=== PATIENT | male | born 1970 | race Caucasian/White ===

== ENCOUNTER 2025-03-12 06:19 | Day surgery (SDC) | payer OTHER, MEDICARE ==
[~2025-03-12] VITALS: Ht 180.3 cm; Wt 76.8 kg
[2025-03-12] MEDS ORDERED: AMPICILLIN SODIUM 2 GM/NS 100 ML IV ONE (07:20)
[2025-03-12] MEDS ORDERED: RISP2TAB45 PO (07:44)
[2025-03-12] MEDS ORDERED: MELA5TAB40 PO (07:44)
[2025-03-12] MEDS ORDERED: PARO40TA72 PO (07:44)
[2025-03-12] MEDS ORDERED: HYDR-4808 PO (07:44)
[2025-03-12] MEDS ORDERED: LOSA-382 PO (07:44)
[2025-03-12] MEDS ORDERED: OLAN10TA74 PO (07:44)
[2025-03-12] MEDS ORDERED: NEOM28.37 TP (07:44)
[2025-03-12] MEDS ORDERED: LOVA20TA73 PO (07:44)
[2025-03-12] MEDS ORDERED: FERR325T27 PO (07:44)
[2025-03-12 07:50] LABS: EOSINOPHILS % (AUTO) 0 % (1.0-6.0); HEMATOCRIT 35.6 % (41-53); HEMOGLOBIN 11.9 g/dL (13.5-17.5); LYMPHOCYTES # (AUTO) 1.3 K/uL (1.0-4.8); LYMPHOCYTES % (AUTO) 32.2 % (22.0-44.0); MEAN CORPUSCULAR HEMOGLOBIN 30.9 pg (26.0-34.0); MEAN CORPUSCULAR HGB CONC 33.5 G/dL (31.0-37.0); MEAN CORPUSCULAR VOLUME 92 fL (80-100); MONOCYTES # (AUTO) 0.4 K/uL (0.1-1.0); MONOCYTES % (AUTO) 10.3 % (2.0-9.0); NEUTROPHILS # (AUTO) 2.3 K/uL (1.8-7.7); NEUTROPHILS % (AUTO) 57.5 % (40.0-70.0); PLATELET COUNT (AUTO) 169 K/uL (150-450); RED BLOOD CELL COUNT(AUTO) 3.87 MIL/uL (4.50-5.90); RED CELL DISTRIBUTION WIDTH 13.1 % (11.5-14.5)
[2025-03-12 08:01] LABS: CREATININE 2.83 mg/dL (0.60-1.30); POTASSIUM 4.2 mmol/L (3.5-5.1)
[2025-03-12 08:03] LABS: PROTHROMBIN TIME 10.4 SEC (9.4-11.6)
[2025-03-12 08:09] LABS: ALBUMIN 3.4 g/dL (3.4-5.0); BILIRUBIN,TOTAL 0.4 mg/dL (0.1-1.0); TOTAL PROTEIN, SERUM 6.7 g/dL (6.4-8.2)
[2025-03-12] MEDS ORDERED: TRAZ-252 PO (08:09)
[2025-03-12] MEDS ORDERED: POLY17PO47 PO (08:09)
[2025-03-12] MEDS ORDERED: BISA-151 PO (08:09)
[2025-03-12] MEDS ORDERED: ACET-2247 PO (08:09)
[2025-03-12] MEDS: RINGERS SOLUTION,LACTATED 1,000 ML IV ONE (11:03)
[2025-03-12] MEDS ORDERED: DEXAMETHASONE SOD PHOS 4 MG/ML VIAL ONE (12:00)
[2025-03-12] MEDS ORDERED: PROPOFOL 1% 20 ML VIAL IVP ONE (12:00)
[2025-03-12] MEDS ORDERED: SUGAMMADEX SODIUM 200 MG/2 ML VIAL IVP ONE (12:00)
[2025-03-12] MEDS ORDERED: LIDOCAINE/PF 2% 5 ML VIAL ONE (12:00)
[2025-03-12] MEDS ORDERED: ONDANSETRON HCL 4 MG/2 ML VIAL ONE (12:00)
[2025-03-12] MEDS ORDERED: ROCURONIUM BROMIDE 10 MG/ML 5 ML VIAL ONE (12:00)
== END 2025-03-12 13:35 | disposition home or self-care (01) ==
LOC: SURGERY 06:19
PROVIDERS: ATTEND Dentist General Practice
DX: K03.6 Deposits [accretions] on teeth (principal); K05.30 Chronic periodontitis, unspecified; I12.9 Hypertensive chronic kidney disease with stage 1 through stage 4 chronic kidney disease, or unspecified chronic kidney disease; K59.00 Constipation, unspecified; N18.9 Chronic kidney disease, unspecified; F41.9 Anxiety disorder, unspecified; E78.5 Hyperlipidemia, unspecified; Z79.01 Long term (current) use of anticoagulants; Z79.899 Other long term (current) drug therapy
CPT/HCPCS: 41899; 71045; 80053; 85025; 85610; 85730; 36415; 93005; J0290; J2704; J1100; J3490 ×3; J2405; J7120